=== PATIENT | female | born 1985 | race Caucasian/White ===

== ENCOUNTER 2017-01-23 16:49 | Emergency (ER) | payer MEDICAID ==
[~2017-01-23] VITALS: Ht 165.1 cm; Wt 128.8 kg
[2017-01-23 18:17] VITALS: BP 147/93
== END 2017-01-23 18:30 | disposition home or self-care (01) ==
LOC: ED 16:49
DX: H00.12 Chalazion right lower eyelid (principal)

== ENCOUNTER 2017-01-31 07:23 | Emergency (ER) | payer MEDICAID ==
[2017-01-31 09:31] VITALS: BP 152/103
== END 2017-01-31 09:25 | disposition home or self-care (01) ==
LOC: ED 07:23
DX: A59.01 Trichomonal vulvovaginitis (principal)
CPT/HCPCS: 87491; 87591

== ENCOUNTER 2017-03-08 20:37 | Emergency (ER) | payer MEDICAID ==
[~2017-03-08] VITALS: Ht 165.1 cm; Wt 128.4 kg
[2017-03-08 23:36] VITALS: BP 157/93
== END 2017-03-08 23:36 | disposition home or self-care (01) ==
LOC: ED 20:37
DX: R07.89 Other chest pain (principal); I10 Essential (primary) hypertension; E66.01 Morbid (severe) obesity due to excess calories
CPT/HCPCS: 36415; 82962

== ENCOUNTER 2017-04-08 22:55 | Emergency (ER) | payer MEDICAID ==
[~2017-04-08] VITALS: Ht 165.1 cm; Wt 129.3 kg
[2017-04-09 00:06] LABS: BASOPHIL % 0.5 % (0-2); PLATELET COUNT 307 x10^3mcL (130-400); RED CELL DISTRIBUTION WIDTH 14.3 % (11.5-14.5)
[2017-04-09 00:14] LABS: CARBON DIOXIDE 30.2 mmol/L (21-32); CHLORIDE SERUM 106 mmol/L (98-107); CREATININE SERUM 0.6 mg/dL (0.6-1.0); GFR1 > 60 mL/min; GLUCOSE SERUM 102 mg/dL (74-106); POTASSIUM SERUM 3.8 mmol/L (3.5-5.1); SODIUM SERUM 141 mmol/L (136-145)
[2017-04-09 00:19] LABS: ALKALINE PHOSPHATASE 105 U/L (46-116); ALT/SGPT 52 U/L (14-59); AMYLASE 37 U/L (25-115); AST/SGOT 18 U/L (15-37); BILIRUBIN TOTAL 0.1 mg/dL (0.20-1.00); LIPASE 128 IU/L (73-393); TOTAL PROTEIN, SERUM 7.4 g/dL (6.4-8.2)
[2017-04-09 00:20] LABS: ALBUMIN 3.2 g/dL (3.4-5.0)
[2017-04-09 01:00] VITALS: BP 146/94
== END 2017-04-09 01:00 | disposition home or self-care (01) ==
LOC: ED 22:55
PROVIDERS: Emergency Medicine
DX: K80.50 Calculus of bile duct without cholangitis or cholecystitis without obstruction (principal); Z87.19 Personal history of other diseases of the digestive system
CPT/HCPCS: 36415; 83880; J1885

== ENCOUNTER 2017-07-02 17:07 | Emergency (ER) | payer MEDICAID ==
[2017-07-02 20:44] VITALS: BP 154/105
== END 2017-07-02 19:09 | disposition home or self-care (01) ==
LOC: ED 17:07
DX: K02.9 Dental caries, unspecified (principal); I10 Essential (primary) hypertension; F17.210 Nicotine dependence, cigarettes, uncomplicated; E66.01 Morbid (severe) obesity due to excess calories; Z71.6 Tobacco abuse counseling
CPT/HCPCS: 99406; J0690

== ENCOUNTER 2017-07-13 22:57 | Emergency (ER) | payer MEDICAID ==
[~2017-07-13] VITALS: Ht 165.1 cm; Wt 131.1 kg
[2017-07-13 23:06] VITALS: Ht 165.1 cm; Wt 131.1 kg
[2017-07-13 23:57] LABS: CALCIUM 8.6 mg/dL (8.5-10.1); CARBON DIOXIDE 27.6 mmol/L (21-32); CHLORIDE SERUM 100 mmol/L (98-107); CREATININE SERUM 0.7 mg/dL (0.6-1.0); GFR1 > 60 mL/min; GLUCOSE SERUM 114 mg/dL (74-106); POTASSIUM SERUM 3.5 mmol/L (3.5-5.1); SODIUM SERUM 137 mmol/L (136-145)
[2017-07-14 00:02] LABS: BASOPHIL % 0.4 % (0-2); PLATELET COUNT 354 x10^3mcL (130-400); RED CELL DISTRIBUTION WIDTH 14.1 % (11.5-14.5)
[2017-07-14 00:04] LABS: ALBUMIN 3.5 g/dL (3.4-5.0); ALKALINE PHOSPHATASE 96 U/L (46-116); ALT/SGPT 74 U/L (14-59); AST/SGOT 32 U/L (15-37); BILIRUBIN TOTAL 0.4 mg/dL (0.20-1.00); LIPASE 109 IU/L (73-393); TOTAL PROTEIN, SERUM 7.8 g/dL (6.4-8.2)
[2017-07-14 01:05] VITALS: BP 133/76
== END 2017-07-14 01:05 | disposition home or self-care (01) ==
LOC: ED 22:57
PROVIDERS: Emergency Medicine
DX: K80.20 Calculus of gallbladder without cholecystitis without obstruction (principal); I10 Essential (primary) hypertension
CPT/HCPCS: 36415; J1885; Q0092

== ENCOUNTER 2018-07-15 11:26 | Emergency (ER) | payer OTHER ==
[~2018-07-15] VITALS: Ht 165.1 cm; Wt 131.5 kg
[2018-07-15 11:51] VITALS: Ht 165.1 cm; Wt 131.5 kg
[2018-07-15 13:31] VITALS: BP 117/88
== END 2018-07-15 13:31 | disposition home or self-care (01) ==
LOC: ED 11:26
DX: M62.838 Other muscle spasm (principal); I10 Essential (primary) hypertension; F17.210 Nicotine dependence, cigarettes, uncomplicated; Z98.890 Other specified postprocedural states
CPT/HCPCS: 20552; 99406; J2001